=== PATIENT | male | born 2000 | race Caucasian/White ===

== ENCOUNTER 2021-03-10 18:03 | Outpatient (CLI) | payer SELFPAY | END 2021-03-10 18:04 | disposition EMS.NT | LOC: EMS 18:03 | DX: Z03.89 Encounter for observation for other suspected diseases and conditions ruled out (principal) ==

== ENCOUNTER 2021-03-16 13:32 | Outpatient (CLI) | payer BC | END 2021-03-16 13:33 | disposition critical access hospital (66) | LOC: EMS 13:32 | DX: R45.851 Suicidal ideations (principal) | CPT/HCPCS: A0425; A0429 ==

== ENCOUNTER 2021-03-16 13:53 | Emergency (ER) | payer BC ==
--- NOTE | 2021-03-16 14:04 | ED Physician Documentation ---
History of Present Illness - Stated complaint Stated Complaint: MHE - History obtained from History obtained from: Patient - Additonal information Additional information: 20-year-old gentleman presents by ambulance for alcohol intoxication. He has no specific complaint other than he would like to call someone to pick him up. There is DANIEL paperwork accompanying him from [facility] ED stating that he was running in and out of traffic. Patient has been cooperative with me and with EMS. He denies repeatedly any suicidal or homicidal ideation. Review of Systems Constitutional: denies: Fever, Chills Eyes: reports: Reviewed and negative Ears: reports: Reviewed and negative Nose: reports: Reviewed and negative Throat: reports: Reviewed and negative PD PAST MEDICAL HISTORY - Allergies Allergies/Adverse Reactions: Allergies Allergy/AdvReac Type Severity Reaction Status Date / Time amoxicillin [From Augmentin] Allergy Unknown Verified 03/16/21 14:10 clavulanic acid Allergy Unknown Verified 03/16/21 14:10 [From Augmentin] codeine Allergy Respiratory Verified 03/16/21 14:10 PD ED PE NORMAL - Vitals Vital signs reviewed: Yes - General General: Alert and oriented X 3, Other (Mildly slurred speech but coherent alert and oriented and cooperative. Normal affect) - Neuro Neuro: Alert and oriented X 3, Normal speech - Psych Psych: Normal mood, Normal affect Results - Vitals Vitals: Vital Signs - 24 hr 03/16/21 14:00 Temperature 36.6 C Heart Rate 90 Respiratory 16 Rate Blood Pressure 127/88 H O2 Saturation 98 Oxygen O2 Source Room air PD MEDICAL DECISION MAKING - ED course ED course: 20 yo male Presents by ambulance for alcohol intoxication. Although DANIEL paperwork accompanies him, he does not fit any criteria for grave disability or danger to self. He will be observed until clinical sobriety. Offered to have him talk to the social work nurse about detox options but he declined. Departure - Departure Disposition: 01 Home, Self Care Clinical Impression: Alcohol intoxication Qualifiers: Complication of substance-induced condition: uncomplicated Qualified Code(s): F10.920 - Alcohol use, unspecified with intoxication, uncomplicated Condition: Good Record reviewed to determine appropriate education?: Yes Instructions: ED Alcohol Intoxication Comments: Return anytime if you would like to pursue detoxification options. Call your doctor to arrange a follow-up appointment, make the next available appointment. In the interim, return anytime if worse or if new symptoms develop.
[2021-03-16 14:08] VITALS: BP 127/88
== END 2021-03-16 14:55 | disposition home or self-care (01) ==
LOC: EDUNIT# → ED 13:53
DX: F10.920 Alcohol use, unspecified with intoxication, uncomplicated (principal)
CPT/HCPCS: 99282; 99283